=== PATIENT | male | born 1940 | race Caucasian/White ===

== ENCOUNTER → 2019-11-15 | Outpatient (CLI) | payer MEDICARE ==
[~2019-11-15] MED LIST: ALBU18HF INH; ASPI81TA45 PO; ATOR20TA37 PO; ENAL20TA PO; HYDROCHLOROTH12.5 MG PO; METO50TA82 PO; OMEP-110 PO; TAMS-11 PO
[2019-11-15 11:56] LABS: INTERNATIONAL NORMALIZED RATIO 1.01 (0.93-1.1); PROTHROMBIN TIME 10.7 Seconds (9.6-11.5)
[2019-11-15 11:58] LABS: ALANINE AMINOTRANSFERASE 14 U/L (12-78); ALBUMIN 3.6 g/dL (3.4-5.0); ANION GAP 5 mmol/L (5-15); CALCIUM 9.6 mg/dL (8.5-10.1); CHLORIDE 105 mmol/L (98-107)
[2019-11-15 12:00] LABS: BASOPHILS % (AUTO) 1 % (0-1); EOSINOPHILS # (AUTO) 0.43 x10^3/uL (0-0.4); EOSINOPHILS % (AUTO) 5 % (1-7); LYMPHOCYTES # (AUTO) 1.45 x10^3/uL (1-3.4); LYMPHOCYTES % (AUTO) 17 % (22-44); MD NO; MEAN CORPUSCULAR HEMOGLOBIN 28.4 pg (27.5-34.5); MEAN CORPUSCULAR HGB CONC 32.8 g/dL (33.2-36.2); MEAN CORPUSCULAR VOLUME 86.6 fL (81-97); MEAN PLATELET VOLUME 7.6 fL (7.4-10.4); MONOCYTES # (AUTO) 0.59 x10^3/uL (0.2-0.8); MONOCYTES % (AUTO) 7 % (2-9); NEUTROPHILS # (AUTO) 5.98 x10^3/uL (1.8-6.8); NEUTROPHILS % (AUTO) 70 % (42-75); PLATELET COUNT 253 x10^3/uL (130-400); RED BLOOD COUNT 5.59 x10^6/uL (4.38-5.82); RED CELL DISTRIBUTION WIDTH 15.9 % (9.4-14.8)
[2019-11-15 12:01] LABS: ALKALINE PHOSPHATASE 94 U/L (45-117); BILIRUBIN,TOTAL 0.8 mg/dL (0.2-1.0); CREATININE 1.11 mg/dL (0.7-1.3); TOTAL PROTEIN 7.8 g/dL (6.4-8.2)
== END | disposition home or self-care (01) ==
LOC: STAR 10:33
PROVIDERS: ATTEND Internal Medicine Critical Care Medicine
DX: Z01.818 Encounter for other preprocedural examination (principal); R91.8 Other nonspecific abnormal finding of lung field; R00.0 Tachycardia, unspecified; R94.31 Abnormal electrocardiogram [ECG] [EKG]; I25.2 Old myocardial infarction
CPT/HCPCS: 36415; 80053; 85025; 85610; 85730; 93005

== ENCOUNTER 2019-11-21 06:11 | Day surgery (SDC) | payer MEDICARE ==
[~2019-11-21] VITALS: Ht 175.3 cm; Wt 88.0 kg
[2019-11-21] MEDS ORDERED: LACTATED RINGERS 1,000 ML IV SCH (06:58)
[2019-11-21 07:00] VITALS: BP 125/75
[2019-11-21] MEDS ORDERED: CHLORHEXIDINE 15 ML UDC MM ONE (07:00)
[2019-11-21] MEDS ORDERED: CHLORHEXIDINE 15 ML UDC ONE (07:06)
[2019-11-21] MEDS ORDERED: VASOPRESSIN 20 UNIT/ML, 1ML ONE (08:22)
[2019-11-21] MEDS ORDERED: ROCURONIUM 10 MG/ML,10ML ONE (08:22)
[2019-11-21] MEDS ORDERED: PHENYLEPHRINE 10 MG/ML ONE (08:22)
[2019-11-21] MEDS ORDERED: SUCCINYLCHOLINE 20 MG/ML, 10ML ONE (08:22)
[2019-11-21] MEDS ORDERED: PROPOFOL 10 MG/ML, 20ML ONE (08:22)
[2019-11-21] MEDS ORDERED: FENTANYL PF 100 MCG/2ML IV PRN (08:30)
[2019-11-21] MEDS ORDERED: MEPERIDINE/PF 25MG/0.5ML IVPush PRN (08:30)
[2019-11-21] MEDS ORDERED: PROMETHAZINE 25 MG/ML, 1ML IVPush PRN (08:30)
[2019-11-21] MEDS ORDERED: FLUMAZENIL 0.1 MG/1 ML, 5ML ONE (09:14)
[2019-11-21] MEDS ORDERED: FENTANYL PF 100 MCG/2ML ONE ×2 (09:50→10:10)
[2019-11-21] MEDS ORDERED: BENZONATATE 100 MG CAPSULE PO ONE (10:30)
[2019-11-21] MEDS ORDERED: FLUMAZENIL 0.1 MG/1 ML, 5ML IVPush ONE (10:30)
== END 2019-11-21 11:40 | disposition home or self-care (01) ==
LOC: OUT 06:11
PROVIDERS: ATTEND Internal Medicine Critical Care Medicine
DX: R91.1 Solitary pulmonary nodule (principal); Z11.59 Encounter for screening for other viral diseases; R59.0 Localized enlarged lymph nodes; C77.1 Secondary and unspecified malignant neoplasm of intrathoracic lymph nodes; I11.9 Hypertensive heart disease without heart failure; N40.0 Benign prostatic hyperplasia without lower urinary tract symptoms; K21.9 Gastro-esophageal reflux disease without esophagitis; E78.5 Hyperlipidemia, unspecified; G47.30 Sleep apnea, unspecified; E66.9 Obesity, unspecified; Z68.29 Body mass index [BMI] 29.0-29.9, adult; Z79.82 Long term (current) use of aspirin; Z79.899 Other long term (current) drug therapy; Z85.118 Personal history of other malignant neoplasm of bronchus and lung; Z88.5 Allergy status to narcotic agent; Z98.1 Arthrodesis status; Z99.81 Dependence on supplemental oxygen; Z82.49 Family history of ischemic heart disease and other diseases of the circulatory system; Z80.9 Family history of malignant neoplasm, unspecified
CPT/HCPCS: 31652; 36415; 71045; 87635; 88172; 88173; 88177; 88305; 88341; 88342; J0330; J2370; J2704; J3010; J7120; 31622; 31625; 31629